=== PATIENT | male | born 1945 | race Caucasian/White ===

== ENCOUNTER 2017-03-27 21:01 | Inpatient (IN) | payer MEDICARE, OTHER ==
[~2017-03-27] VITALS: Ht 177.8 cm; Wt 122.2 kg
--- NOTE | ~2017-03-27 | CO ---
Unit #: [id number] #: [id number] Patient: RICK MONTGOMERY [id number] [address] [address] [id number] MR#: [id number] NAME: RICK MONTGOMERY ROOM: 341 Age: 72 Sex: M Admission Date: 03/27/2017 : 1945 Attending Physician: Sammie Ohara M.D. Primary Care Physician: Bandar Dorsey M.D. Consultation Date: 03/31/2017 CONSULTATION REPORT REASON FOR CONSULTATION Antibiotic recommendations. HISTORY The patient is a pleasant 72-year-old male with multiple medical problems, admitted with left-sided back and lower quadrant pain with some nausea, vomiting, fevers, and chills. No cough, congestion, chest pain, shortness of breath, headaches, or dizziness. He presented to Emergency Room, was febrile. CT scan of the abdomen and pelvis shows a 7-mm proximal left ureteral stone with moderate hydronephrosis and perinephric stranding. CT scan information is through chart as no report is available. He was admitted, started on multiple antibiotics, and underwent cystoscopy and stent placement. Urine cultures growing enterococcus, which is sensitive to ampicillin and vancomycin. The patient has been on Rocephin and vancomycin. Rocephin is stopped. He is allergic to penicillin with a rash. Infectious Disease consultation requested for further evaluation of antibiotic management. PAST MEDICAL HISTORY 1. Diabetes mellitus. 2. Atrial fibrillation, status post defibrillator placement. 3. Hypothyroidism. 4. Depression. 5. Obstructive sleep apnea, on CPAP. 6. Fatty liver. 7. DJD. PAST SURGICAL HISTORY 1. Cholecystectomy. 2. Right knee replacement. 3. Tonsillectomy. 4. Esophageal hernia, status post repair. 5. Removal of cyst from the hand. ALLERGIES Allergic to penicillin, causing rash. SOCIAL HISTORY Noncontributory. FAMILY HISTORY Noncontributory. Unit #: [id number] #: [id number] Patient: RICK MONTGOMERY CURRENT MEDICATIONS List reviewed. Antibiotics include Rocephin and vancomycin since admission, vancomycin was stopped this morning. PHYSICAL EXAMINATION GENERAL: Sitting up comfortably, in no distress. VITAL SIGNS: Temperature 99.1, pulse 62, respirations 16, and blood pressure 115/77. HEENT: Unremarkable. NECK: Supple. CHEST: Clear to auscultation. HEART: Normal S1 and S2. ABDOMEN: Soft and nontender. EXTREMITIES: Shows no edema. DIAGNOSTIC STUDIES LABORATORY RESULTS: Labs as noted above. BUN 16 and creatinine 1.1, which was 1.6 upon admission. AST 99, ALT 90, alkaline phosphatase 84, and total bilirubin 0.8. WBC 14.6, hemoglobin 12.8, and platelets 183. No urinalysis available. , enterococcus more than 100,000 colonies sensitive to ampicillin and vancomycin. Blood cultures have been negative. IMAGING STUDIES: CT scan report per notes. ASSESSMENT 1. Obstructive uropathy, status post cystoscopy and stent placement. 2. Left-sided pyelonephritis. 3. Sepsis with enterococcus. 4. Acute kidney injury, resolved. 5. Allergy to penicillin. PLAN We will go ahead and continue with vancomycin, total of three weeks. Get PICC line. Get pharmacy to follow for vancomycin dosing. CBC every Sunday and BMP every Sunday and . Stop date for vancomycin should be April 17. Further recommendation depending upon the course. I would like to thank Dr. Coronel for requesting us to participate in the care of this patient. We will follow this patient along with you. Dictated by... Jan Sandoval/isa TD: 04/01/2017 05:22 JOB #: [id number] Unit #: [id number] #: [id number] Patient: RICK MONTGOMERY CONSULTATION REPORT Page 1 of 1 X Carlos Ann MD CONSULTATION REPORT
--- NOTE | ~2017-03-27 | TOC ---
Unit #: [id number] #: [id number] Patient: RICK MONTGOMERY [id number] [address] [address] [id number] I MR#: [id number] NAME: RICK MONTGOMERY ROOM: CIC2 Age: 72 Sex: M Admission Date: 03/27/2017 : 1945 Attending Physician: Sammie Ohara M.D. Primary Care Physician: Bandar Dorsey M.D. TRANSFER OF CARE SUMMARY DISCHARGE DIAGNOSIS So far: 1. Septic shock. 2. Severe sepsis. 3. Sepsis. 4. Obstructive pyelonephritis. 5. Gross hematuria. 6. Acute kidney injury. 7. Atrial fibrillation with rapid ventricular rate. 8. Diabetes mellitus type 2. 9. Hypomagnesemia. 10. Hypokalemia. 11. Mild hyponatremia. 12. Hypocalcemia. 13. Kidney stone status post cystoscopy and stent placement. 14. History of nonischemic cardiomyopathy. 15. Status post defibrillator. 16. Obstructive sleep apnea on continuous positive airway pressure. 17. Depression. 18. Fatty liver. 19. Degenerative joint disease. CONSULTATION Dr. Ferreira. PROCEDURES The patient had a cystoscopy and left ureteral stent and Wild catheter placement. DIAGNOSTIC STUDIES LABORATORY: Glucose 93, sodium 133, potassium 4.1, creatinine 1.3, calcium 7.3. WBC 11.2, hemoglobin 11.9, platelets 148. Urine culture growing Enterococcus species. Blood cultures negative. IMAGING: Chest x-ray shows bilateral pleural plaques. HOSPITALIZATION COURSE A 72 year old admitted because of abdominal pain. Severe sepsis with septic shock. Severe sepsis present on admission. Patient currently stable. Obstructive pyelonephritis with kidney stone status post cystoscopy and stent placement. Urine cultures are growing Enterococcus. Wait for Unit #: [id number] #: [id number] Patient: RICK MONTGOMERY complete cultures. Continue with vancomycin and Rocephin for now. Gross hematuria from kidney stone. Treatment as per Urology. Acute kidney injury from sepsis and currently creatinine is stable. Multiple electrolyte imbalance, currently replaced. Monitor closely. Atrial fibrillation with rapid ventricular rate. Continue with Coreg, currently rate controlled on Pradaxa. Monitor his hematuria on Pradaxa. Diabetes mellitus type 2 uncontrolled. Continue with insulin. Okay to go to tele. [place] plans in one to two days once stable and urine cultures are back, complete (1) . Dictated by... Jan Franco/cristina TD: 03/30/2017 12:02 JOB #: [id number] TRANSFER OF CARE SUMMARY Page 1 of 1 X Sammie Ohara MD X TRANSFER OF CARE SUMMARY
--- NOTE | ~2017-03-27 | HP ---
Unit #: [id number] #: [id number] Patient: RICK MNOTGOMERY [id number] [address] [address] [id number] I MR#: [id number] NAME: RICK MONTGOMERY ROOM: CIC2 Age: 72 Sex: M Admission Date: 03/27/2017 : 1945 Attending Physician: Nancy Nova M.D. Primary Care Physician: Bandar Dorsey M.D. HISTORY AND PHYSICAL CHIEF COMPLAINT Obstructive pyelonephritis with 7 mm left ureteral stone. HISTORY This pleasant 72-year-old male with AODM, atrial fibrillation, cardiomyopathy, was transferred from [facility] emergency department for obstructive pyelonephritis. The patient was well until yesterday when he developed recurrent episodes of nausea and vomiting with left lower quadrant pain. His symptoms persisted today, and he developed fevers, sweats, chills. Went to [facility] emergency department where his initial systolic blood pressure was 108. He was febrile, and a CT scan performed showed a 7 mm proximal left ureteral stone with moderate hydronephrosis and moderate perinephric stranding. He was treated with vancomycin, IV fluids, and Levaquin. The case was discussed with urology and he was sent to this facility. He currently is making urine. His current blood pressure is 94/44. He is febrile to 102.4. PAST MEDICAL HISTORY 1. AODM. 2. Atrial fibrillation with cardiomyopathy, status post defibrillator. 3. Hypothyroidism. 4. Depression. 5. Obstructive sleep apnea, on CPAP. 6. Fatty liver. 7. DJD. 8. Cholecystectomy. 9. Right knee replacement. 10. Tonsillectomy. 11. Esophageal hernia repair. 12. Cyst removed from the hand. ALLERGIES Penicillin, resulting in a rash. HOME MEDICATIONS 1. Pradaxa 150 mg b.i.d. Last dose was this morning. 2. Effexor XR 75 mg daily. 3. Hytrin 5 mg b.i.d. 4. Synthroid 0.075 mg daily. 5. Coreg 25 mg, one and a half tablets daily. 6. Potassium 10 mEq daily. 7. Bumex 2 mg daily. Unit #: [id number] #: [id number] Patient: RICK MONTGOMERY 8. Vitamin C. 9. Co Q-10 daily. 10. Zinc daily. 11. Magnesium oxide 500 mg daily. 12. Spironolactone 25 mg, two tablets daily. 13. Metformin 500 mg. 14. Levemir 35 units subcu q. h.s. FAMILY HISTORY Negative for heart disease or kidney stones. SOCIAL HISTORY The patient lives with his . He stopped smoking many years ago, does not drink alcohol. REVIEW OF SYSTEMS Notable for nausea, vomiting, left lower quadrant pain, fever, sweats, chills, diabetes, above mentioned surgeries, atrial fibrillation, cardiomyopathy, hypothyroidism, depression, obstructive sleep apnea, fatty liver, DJD. All other systems were reviewed and otherwise negative. PHYSICAL EXAMINATION GENERAL APPEARANCE: Pleasant 72-year-old, moderately obese male, currently in no acute distress. VITAL SIGNS: Blood pressure 94/44, temperature is 102.4, heart rate 106. HEENT: Eyes PERRLA. Extraocular muscles are intact. Pharynx is benign. NECK: Supple without adenopathy or thyromegaly. CHEST: Clear. BACK: Without CVA tenderness. CARDIAC: Irregular S1 and S2 without definite murmur. ABDOMEN: Bowel sounds are present. The patient is tender in the left lower quadrant without rebound, guarding. No definite masses. Mild hepatomegaly noted on exam. EXTREMITIES: With mild edema. Pedal pulses are diminished. No ulcers on the feet. NEUROLOGIC: The patient is awake, alert. He is oriented. His cranial nerves are intact except that he is hard of hearing. He has equal strength throughout but is generally weak on exam. DIAGNOSTIC STUDIES LABORATORY: Admission labs - hematocrit is 42.4, white blood count is 20.6, normal platelet count. SMA-12 - sodium 129, creatinine 1.7, glucose 210, lactic acid 2.6, bilirubin is 2.4. Urinalysis - 10-20 red cells, 2-5 white cells, 1+ bacteria. IMAGING: Chest x-ray - stable cardiomegaly. CT scan shows 7 mm proximal left ureteral stone with moderate hydronephrosis and moderate perinephric stranding, fatty liver. There is a cyst in the left kidney which may need further workup. CARDIOVASCULAR: EKG shows atrial fibrillation, rate 96 with right bundle branch block. ASSESSMENT Unit #: [id number] #: [id number] Patient: RICK MONTGOMERY 1. Obstructive pyelonephritis with obstructing 7 mm left ureteral stone. 2. Acute kidney injury. 3. Nonischemic cardiomyopathy with atrial fibrillation, on Pradaxa. Last dose of Pradaxa was this morning. 4. Adult onset diabetes mellitus. 5. Hypothyroidism. 6. Obstructive sleep apnea. PLANS 1. Will add Rocephin to Levaquin and vancomycin given that penicillin only results in a rash. 2. IV fluids. 3. Hold diuretics. 4. Will discuss with urology tonight. 5. SCDs for DVT prophylaxis. 6. Keep NPO. 7. Sliding scale insulin and decrease Levemir. Dictated by Nancy Nova M.D. AML/df TD: 03/28/2017 05:03 JOB #: [id number] CC: Sara Negron M.D. HISTORY AND PHYSICAL Page 1 of 1 X Nancy Nova MD HISTORY AND PHYSICAL
--- NOTE | ~2017-03-27 | CR72 ---
[facility] A Service of [facility] & [facility] RADIOLOGY TEXT RESULTS PATIENT: RICK MONTGOMERY LOCATION: [address] : [birth year] UNIT #: [id number] AGE: [address]: Sammie Ohara MD SEX: M ORDER DR: [id number] [facility] [address] [facility]. [place], [place] [address] [id number] I MR#: [id number] Acc #: [id number] NAME: RICK MONTGOMERY : 1945 SEX: M STUDY DATE/TIME: 03/28/2017 17:21 UNIT: [facility] ROOM: [facility] STUDY DESCRIPTION: CR Chest Single View Portable Attending Physician: Sammie Ohara M.D. Ordering Physician: Ed Scott Barbosa M.D. Primary Care Physician: Bandar Dorsey M.D. MEDICAL IMAGING REPORT This report is preliminary unless electronic signature is present EXAM Portable chest HISTORY Central line placement today. FINDINGS Right IJ central line tip is at the junction of the SVC and right atrium. No pneumothorax. Mild cardiac enlargement. Multifocal calcified bilateral pleural plaques. Pulmonary vascularity is normal. Dictated by... Jadon Montes M.D. THIS IS AN ELECTRONICALLY VERIFIED REPORT Jadon Montes M.D. at 03/29/2017 11:02 PM DFL/psc TD: 03/29/2017 03:39 JOB #: [id number] MEDICAL IMAGING REPORT Page 1 of 1 COPY
--- NOTE | ~2017-03-27 | XA166 ---
[facility] A Service of [facility] & [facility] RADIOLOGY TEXT RESULTS PATIENT: RICK MONTGOMERY LOCATION: C3A PC 341- : 43 UNIT #: [id number] AGE: [address]: Alan Saeed MD SEX: M ORDER DR: [id number] [id number] [facility]. [place], [place] [address] [id number] MR#: [id number] Acc #: [id number] NAME: RICK MONTGOMERY : 1945 SEX: M STUDY DATE/TIME: 04/02/2017 11:52 UNIT: C3A PCU ROOM: 341 STUDY DESCRIPTION: XA PICC Line Placement WO Port Attending Physician: Alan Saeed M.D. Ordering Physician: Sammie Ohara M.D. Primary Care Physician: Bandar Doresy M.D. MEDICAL IMAGING REPORT This report is preliminary unless electronic signature is present PICC LINE INDICATION IV antibiotics. PRE-PROCEDURE The procedure was explained to the patient and/or patient senior outside sales representative including risks, benefits, potential complications and potential for alternative forms of treatment. Informed consent was obtained, and prior to initiating the procedure a formal timeout procedure was performed. Fluoro time 0.3 minutes. Reference air kerma 11 mGy PROCEDURE Using full standard sterile barrier technique, including caps, gowns, gloves, masks, as well as sterile skin preparation and standard sterile draping, the right arm was prepped and draped in the usual fashion, and real-time sterile ultrasound guidance was used to localize an arm vein and to confirm vessel patency. A hard copy ultrasound image was recorded. After local anesthesia with 1% Xylocaine, the vein was punctured using real-time sterile ultrasound guidance, and an 0.018 guidewire was advanced into the superior vena cava, using fluoroscopic guidance. A 4 Czech single-lumen 43.0 cm PICC was then measured and deployed with the tip positioned in the superior vena cava. The position of the line was documented with a radiographic image. The line was secured in place with an adhesive dressing and an antibiotic patch was applied. Total fluoro time was 0.3 minutes. Reference air kerma 11 mGy. IMPRESSION Successful right arm PICC line placement. [facility] A Service of [facility] & [facility] RADIOLOGY TEXT RESULTS PATIENT: RICK MONTGOMERY LOCATION: [facility] 341-01 : 43 UNIT #: [id number] AGE: [address]: Alan Saeed MD SEX: M ORDER DR: Dictated by... Vick Pagan M.D. THIS IS AN ELECTRONICALLY VERIFIED REPORT Vick Pagan M.D. at 04/04/2017 7:14 AM Kyra TD: 04/03/2017 09:07 JOB #: [id number] MEDICAL IMAGING REPORT Page 1 of 1 COPY
--- NOTE | ~2017-03-27 | CO ---
Unit #: [id number] #: [id number] Patient: RICK MONTGOMERY [id number] [address] [place], [place] [address] [id number] I MR#: [id number] NAME: RICK MONTGOMERY ROOM: 341 Age: 72 Sex: M Admission Date: 03/27/2017 : 1945 Attending Physician: Sammie Ohara M.D. Primary Care Physician: Bandar Dorsey M.D. CONSULTATION REPORT The patient is followed by Dr. Alexia Beck. REASON FOR CONSULTATION Ventricular tachycardia runs. HISTORY OF PRESENT ILLNESS This is a pleasant 72-year-old, male with a past medical history of hypertension, diabetes mellitus, nonischemic cardiomyopathy, status post Medtronic AICD [place] [address] [facility], chronic atrial fibrillation, on chronic anticoagulation with Pradaxa, hypothyroidism, and obstructive sleep apnea. Initially, the patient was admitted on 03/27 secondary to abdominal pain, nausea, and vomiting. He initially presented to [facility]. CT scan of the abdomen was performed, which showed a 7-mm obstructing stone in the proximal left ureter, causing left hydronephrosis and moderate left perinephric stranding. The patient was transferred to [facility] for further evaluation. Dr. Blanchard of Urology saw the patient, and performed a cystoscopy with placement of left ureteral stent on 03/28. The patient was transferred to ICU postoperatively. He also had issues with hypotension and required pressure support during his stay as well as some acute kidney injury. We were asked to see the patient secondary to runs of ventricular tachycardia. The patient denies any complaints of chest pain, shortness of breath, or palpitations. Again, he is status post AICD placement, Medtronic device on 10/04/[address] Alegre. The patient also had cardiac catheterization in 06/2015, which showed an LVEF of 30%, nonobstructive coronary artery disease, mid LAD had 20% to 25% stenosis. RCA was felt to be normal. At this time, the patient is stable. He denies any shocks from his defibrillator. He denies any chest pain. We were asked to see for evaluation of the above. PAST MEDICAL HISTORY 1. Hypertension. 2. Nonobstructive coronary artery disease, status post cardiac cath in 06/2015 with an LVEF of 30%, nonobstructive coronary artery disease, mid LAD is 20% to 25%. RCA was normal. Left main was normal. LAD at 20% to 25% stenosis. Left circumflex, normal, and right coronary artery branches were free of any angiographically significant coronary atherosclerosis. 3. 2D echocardiogram in 11/24 shows LVEF of 35%. RV pacer lead present. Severe left atrial dilation, aortic valve trileaflet with some mild calcification and mild MR and TR. 4. Diabetes mellitus. 5. Nonischemic cardiomyopathy. Unit #: [id number] #: [id number] Patient: RICK MONTGOMERY 6. AICD placement. Medtronic device per Dr. Alegre in 09/2015. 7. Chronic atrial fibrillation, on chronic anticoagulation with Pradaxa. 8. Hypothyroidism. 9. Obstructive sleep apnea. 10. Fatty liver. 11. Degenerative joint disease. 12. Depression. PAST SURGICAL HISTORY 1. Cardiac cath, Medtronic AICD, placed 10/04/2015. 2. Cholecystectomy. 3. Right knee replacement. 4. Tonsillectomy. 5. Esophageal hernia repair. 6. Cyst removed from hand. ALLERGIES Penicillin. HOME MEDICATIONS 1. Pradaxa 150 mg p.o. b.i.d. 2. Effexor XR 75 mg p.o. daily. 3. Hytrin 5 mg p.o. daily. 4. Synthroid 75 mcg p.o. daily. 5. Carvedilol 25 mg p.o. b.i.d. 6. CoQ10 120 mg p.o. daily. 7. Magnesium 500 mg p.o. daily. 8. Spironolactone 25 mg p.o. b.i.d. 9. The reports he has been taking this; however, is currently not on the medication reconciliation. 10. Synthroid 75 mg daily. 11. Potassium 10 mEq daily. 12. Bumex 2 mg one p.o. daily. 13. Vitamin C 1 tablet daily. 14. Metformin 500 mg daily. 15. Levemir 35 units subcutaneous nightly. FAMILY HISTORY Negative for coronary artery disease. SOCIAL HISTORY The patient lives with his . He is reformed smoker. Denies illicit drugs or alcohol use. REVIEW OF SYSTEMS A 10-point review of systems is obtained and reviewed as negative except for what was stated above in the HPI. PHYSICAL EXAMINATION GENERAL APPEARANCE: This is a pleasant 72-year-old, male, currently resting in bed with his CPAP on, no acute distress. VITAL SIGNS: Temperature 99.1, pulse 62 to 110, blood pressure 102/52 to 115/77. HEENT: Head is atraumatic and normocephalic. Pupils are equal and round. NECK: Trachea is midline. No JVD. No lymphadenopathy or thyromegaly. Carotid upstrokes are normal. CHEST: Clear to auscultation. CARDIOVASCULAR: S1 and S2. Irregularly irregular. No murmurs, gallops, Unit #: [id number] #: [id number] Patient: MONTGOMERY,RICK or rubs. ABDOMEN: No sounds are present. Obese. Pannus. Nontender and nondistended. EXTREMITIES: 1+ edema. Pulses are weak. No clubbing or cyanosis. NEUROLOGIC: The patient is awake, alert, and oriented. He moves all extremities equally, follows commands with ease. DIAGNOSTIC STUDIES Laboratory studies: Potassium is 4.2, sodium is 136, BUN 16, creatinine 1.1, and magnesium 1.8. AST 99, ALT 90. Hemoglobin 12.4, hematocrit 37.8, WBC is 14.6, and platelet count 183. Urine culture shows positive for Enterococcus. Blood cultures have been negative. IMAGING STUDIES: Chest x-ray from 03/28 shows right IJ central line at the junction of the SVC in the right atrium. No pneumo. Mild cardiac enlargement. Multifocal calcified bilateral pleural plaques. Pulmonary vascularity is normal. CARDIOVASCULAR STUDIES: EKG is currently pending. On telemetry, the patient has atrial fibrillation with frequent PVCs. IMPRESSION 1. Nonsustained ventricular tachycardia in an asymptomatic patient with a history of AICD. 2. Nonischemic cardiomyopathy. EF on last echo of 11/2016 shows ejection fraction of 35%. 3. Nonobstructive coronary artery disease. Cardiac cath 06/2015 showed a mid LAD 20% to 25%. Otherwise, no significant obstruction. 4. Chronic atrial fibrillation, on chronic anticoagulation therapy with Pradaxa. 5. Obstructive left pyelonephritis and sepsis. Sepsis is resolved, status post left ureteral stent. 6. Hypertension. 7. Diabetes mellitus. 8. Obstructive sleep apnea, compliant with CPAP therapy. PLAN We have been asked to see the patient secondary to nonsustained ventricular tachycardia. The patient is asymptomatic. He currently has a Medtronic AICD in place, that was placed in 09/[address] Alegre. There have been no discharges on this device. The patient has nonobstructive coronary artery disease, determined by cardiac cath in 06/2015. He denies any complaints of chest pain. He appears euvolemic on examination. His potassium and magnesium have been reviewed. His potassium is noted to be 4.2, magnesium is 1.8. We will supplement magnesium and give 2 g IV x1. We will check EKG today. Repeat a Mag level in the a.m. as well as BMP. We will plan to increase the patient's beta-rekha dose as tolerated and we will consider LINDA inhibitor if blood pressure and kidney function remained stable. This patient will follow up with Dr. Alexia Beck, who is his primary brake assembler at discharge. No further cardiac workup is indicated at this time. Dictated by... Shilpa McginnisPDinoraRTara Unit #: [id number] #: [id number] Patient: RICK MONTGOMERY LMW/modl TD: 04/01/2017 05:18 JOB #: [id number] CONSULTATION REPORT Page 1 of 1 X Linh Altamirano APRN X CONSULTATION REPORT
--- NOTE | ~2017-03-27 | OR ---
Unit #: [id number] #: [id number] Patient: RICK MONTGOMERY [id number] [facility] [address] [facility]. [place], [place] [address] [id number] I MR#: [id number] NAME: RICK MONTGOMERY ROOM: [facility] Date of Procedure: 03/28/2017 Admission Date: 03/27/2017 Surgeon: Romie Ferreira M.D. : 1945 Attending Physician: Sammie Ohara M.D. Primary Care Physician: Bandar Dorsey M.D. OPERATIVE REPORT PREOPERATIVE DIAGNOSES Obstructive left pyelonephritis and sepsis. POSTOPERATIVE DIAGNOSES Obstructive left pyelonephritis and sepsis. PROCEDURES PERFORMED Cystoscopy with placement of left ureteral stent and Wild catheter. ANESTHESIA General. INDICATIONS FOR PROCEDURE This 72-year-old man who sees my partner, Dr. Prabhu Ferrera, for BPH and history of urinary tract infections and he saw him recently presented to [facility] accompanied by his with a 2-day complaint of malaise and brief left flank pain which recurred again today in earnest. He was noted in the emergency department this evening to have a temperature of 101.4 degrees and WBC of 20. He was transferred to [facility] on arrival shortly before midnight, his fever was 102 and he was demonstrating marginal cardiovascular status. A third antibiotic was ordered by Medicine as he was expedited for stent placement. DESCRIPTION OF PROCEDURE The patient underwent satisfactory induction of anesthesia, and was positioned in dorsal lithotomy. The genitalia were prepped and draped. The urethra was dilated to a 24-Citizen Of [place] with a Camacho sound to allow placement of the 22-Citizen [place] rigid cystoscope. Otherwise, the urethra was normal until noting prostatic hypertrophy and elevated bladder neck. The bladder was moderate to severely trabeculated containing scattered stoney granules. There were no tumors seen. The orifices were abundantly large bilaterally. The left ureteral orifice was entered with a Pollack catheter which passed easily up to where the stone was seen and easily passed by but not able to be manipulated up into the kidney. 10 mL of dark maroon renal pelvic urine were aspirated for culture. A guidewire was placed. Then, a 28 x 6 double-J stent in excellent position was deployed internally and the bladder drained with an 18 Wild catheter to complete the procedure. He was stable throughout the procedure and will be transferred to the ICU. Dictated by... Unit #: [id number] #: [id number] Patient: RICK MONTGOMERY M.D. RBH/isa TD: 03/28/2017 06:39 JOB #: [id number] OPERATIVE REPORT Page 1 of 1 X Romie Ferreira MD X PROCEDURE OPERATIVE NOTE
--- NOTE | ~2017-03-27 | DS ---
Unit #: [id number] #: [id number] Patient: RICK MONTGOMERY [id number] [address] [address] [id number] I MR#: [id number] NAME: RICK MONTGOMERY ROOM: 341 Age: 72 Sex: M Admission Date: 03/27/2017 : 1945 Discharge Date: Attending Physician: Alan Saeed M.D. Primary Care Physician: Bandar Dorsey M.D. DISCHARGE SUMMARY ADDENDUM Please see previously dictated transfer of care summary by Dr. Sammie Ohara dictated on March 30, 2017 for full list of diagnoses and initial hospital course. ADDITIONAL HOSPITAL COURSE The patient's urine cultures came back with Enterococcus, which was sensitive to ampicillin and vancomycin. The patient has an allergy to penicillin whereas it causes rash, so infectious disease with Dr. Carlos Ann recommended 3 weeks of IV vancomycin. The stop date will be April 17. Blood cultures were still negative at the time of discharge. Cardiac medications were adjusted by Dr. Marycarmen Gallegos with cardiology. DISCHARGE DISPOSITION Subacute rehab. DISCHARGE STATUS Stable. DISCHARGE DIET A 2,000 mg sodium, diabetic diet. DISCHARGE ACTIVITY With assistance only. FOLLOWUP 1. Discharge followup is with his primary care physician, Dr. Alegre, in 4-6 weeks. 2. Follow up with Dr. Alexia Beck with cardiology in 4-6 weeks. 3. Follow up with Dr. Ferreira with urology in 1 week for stent removal. DISCHARGE MEDICATIONS 1. Combivent 3 mL inhaled q.4 hours p.r.n. shortness of breath. 2. Tylenol 650 mg p.o. q.6 hours p.r.n. pain. 3. Magnesium oxide 400 mg p.o. b.i.d. 4. Pradaxa 150 mg p.o. b.i.d. 5. Metformin 1,000 mg p.o. b.i.d. 6. Carvedilol 12.5 mg p.o. b.i.d. 7. Bumex 2 mg p.o. once daily. 8. Lisinopril 2.5 mg p.o. daily. 9. Hytrin 5 mg p.o. daily. 10. NovoLog medium dose sliding scale subcu a.c. and q.h.s. 11. Coenzyme Q10 - 120 mg p.o. daily. 12. Aldactone 12.5 mg p.o. b.i.d. Unit #: [id number] #: [id number] Patient: RICK MONTGOMERY 13. Calcium carbonate 500 mg p.o. t.i.d. 14. Potassium chloride 10 mEq p.o. daily. 15. Synthroid 75 mcg p.o. daily. 16. Vitamin C 100 mg p.o. daily. 17. Zinc 50 mg p.o. daily. 18. Vancomycin 2 grams IV daily. Last dose to be on April 17, 2017. Laboratory recommend checking a vancomycin trough twice weekly while on vancomycin. 1. Dictated by... Alan Saeed M.D. DEXTER/trudi TD: 04/02/2017 15:19 JOB #: [id number] DISCHARGE SUMMARY Page 1 of 1 X Alan Saeed MD X DISCHARGE SUMMARY
--- NOTE | ~2017-03-27 | EKG ---
PATIENT: RICK MONTGOMERY UNIT #: [id number] Ventricular Rate: 98 BPM Atrial Rate: 105 BPM QRS Duration: 124 ms Q-T Interval: 366 ms QTC Calculation(Bezet): 467 ms Calculated R [place]: -70 degrees Calculated T [place]: -38 degrees Diagnosis Line: Atrial fibrillation with premature ventricular or Diagnosis Line: aberrantly conducted complexes Diagnosis Line: Right bundle branch block Diagnosis Line: Left anterior fascicular block Diagnosis Line: Bifascicular block Diagnosis Line: Low voltage QRS Diagnosis Line: Abnormal ECG Diagnosis Line: No previous ECGs available Diagnosis Line: Confirmed by JACOB SHAH MD ([id number]) on Diagnosis Line: 04/02/2017 8:13:02 PM INTERPRETING : ALETA
[~2017-03-27 21:01] MED LIST: COUMADIN PO; DEMADEX PO; EFFEXOR XR75 MG PO; MAGNESIUM500 MG PO; [UNRECOGNIZED DRUG - OTHER]; [UNRECOGNIZED DRUG - OTHER]
[2017-03-28 06:18] LABS: BASOPHIL% 0.2 % (0-2.5); EOSINOPHIL% 0.1 % (0.0-7.0); HEMATOCRIT 38.3 % (38.0-50.0); HEMOGLOBIN 12.7 gm/dL (13.0-16.0); LYMPHOCYTE# 1.1 X10e3 (1.0-3.5); LYMPHOCYTE% 6.1 % (17.0-45.0); MEAN CELL VOLUME 88.2 FL (83-96); MEAN CORPUSCULAR HEMOGLOBIN 29.2 PG (28-34); MEAN CORPUSCULAR HGB CONC 33.1 g/dL (30-36); MEAN PLATELET VOLUME 8.7 FL (6.5-11.5); MONOCYTE# 1.2 X10e3 (0-1.0); MONOCYTE% 6.7 % (3.0-12.0); NEUTROPHIL# 15.6 X10e3 (1.5-7.1); NEUTROPHIL% 86.9 % (40-75); PLATELET COUNT 146 X10e3 (140-420); RED BLOOD COUNT 4.34 X10e (3.90-5.60); RED CELL DISTRIBUTION WIDTH 13.8 % (11.0-15.5); WHITE BLOOD COUNT 17.9 X10e3 (4.0-10.5)
[2017-03-28 06:29] LABS: DIFF IND YES
[2017-03-28 06:30] LABS: BUN/CREATININE RATIO 12.5; CALCIUM SERUM 7.6 mg/dL (8.4-10.2); CREATININE SERUM 1.6 mg/dL (0.6-1.4); GLOM FILT RATE Estimated 41.8 mL/min (>60); POTASSIUM 3.4 mmol/L (3.5-5.1)
[2017-03-28 08:22] LABS: PLATELET ESTIMATE NORMAL (NORMAL)
[2017-03-28 08:23] LABS: TOXIC GRANULATION SL
[2017-03-29 05:24] LABS: BASOPHIL% 0.1 % (0-2.5); EOSINOPHIL# 0.1 X10e3 (0-0.7); EOSINOPHIL% 0.4 % (0.0-7.0); HEMATOCRIT 37.8 % (38.0-50.0); HEMOGLOBIN 12.3 gm/dL (13.0-16.0); LYMPHOCYTE# 1.2 X10e3 (1.0-3.5); LYMPHOCYTE% 8.1 % (17.0-45.0); MEAN CELL VOLUME 89.3 FL (83-96); MEAN CORPUSCULAR HGB CONC 32.5 g/dL (30-36); MEAN PLATELET VOLUME 9.1 FL (6.5-11.5); MONOCYTE% 6.5 % (3.0-12.0); NEUTROPHIL# 12.7 X10e3 (1.5-7.1); NEUTROPHIL% 84.9 % (40-75); PLATELET COUNT 141 X10e3 (140-420); RED BLOOD COUNT 4.23 X10e (3.90-5.60); RED CELL DISTRIBUTION WIDTH 14.1 % (11.0-15.5)
[2017-03-29 05:38] LABS: DIFF IND NO
[2017-03-29 05:46] LABS: ALBUMIN SERUM 2.7 g/dL (3.5-5.0); BILIRUBIN,TOTAL 1.4 mg/dL (0.2-2.0); BUN/CREATININE RATIO 11.42; CALCIUM SERUM 7.1 mg/dL (8.4-10.2); CREATININE SERUM 1.4 mg/dL (0.6-1.4); GLOM FILT RATE Estimated 49.2 mL/min (>60); MAGNESIUM 1.2 mg/dL (1.6-3.0); POTASSIUM 3.6 mmol/L (3.5-5.1); PROTEIN TOTAL SERUM 6.2 g/dL (6.0-8.3)
[2017-03-30 05:43] LABS: BASOPHIL% 0.2 % (0-2.5); EOSINOPHIL# 0.2 X10e3 (0-0.7); HEMATOCRIT 36.6 % (38.0-50.0); HEMOGLOBIN 11.9 gm/dL (13.0-16.0); LYMPHOCYTE# 1.2 X10e3 (1.0-3.5); LYMPHOCYTE% 10.5 % (17.0-45.0); MEAN CELL VOLUME 88.7 FL (83-96); MEAN CORPUSCULAR HEMOGLOBIN 28.7 PG (28-34); MEAN CORPUSCULAR HGB CONC 32.4 g/dL (30-36); MONOCYTE# 0.8 X10e3 (0-1.0); MONOCYTE% 7.5 % (3.0-12.0); NEUTROPHIL# 8.9 X10e3 (1.5-7.1); NEUTROPHIL% 79.8 % (40-75); PLATELET COUNT 148 X10e3 (140-420); RED BLOOD COUNT 4.13 X10e (3.90-5.60); RED CELL DISTRIBUTION WIDTH 13.9 % (11.0-15.5); WHITE BLOOD COUNT 11.2 X10e3 (4.0-10.5)
[2017-03-30 05:45] LABS: DIFF IND NO
[2017-03-30 06:17] LABS: BUN/CREATININE RATIO 12.3; CALCIUM SERUM 7.3 mg/dL (8.4-10.2); CREATININE SERUM 1.3 mg/dL (0.6-1.4); GLOM FILT RATE Estimated 53.8 mL/min (>60); POTASSIUM 4.1 mmol/L (3.5-5.1)
[2017-03-31 09:00] LABS: BASOPHIL% 0.3 % (0-2.5); EOSINOPHIL# 0.3 X10e3 (0-0.7); EOSINOPHIL% 1.7 % (0.0-7.0); HEMATOCRIT 37.8 % (38.0-50.0); HEMOGLOBIN 12.4 gm/dL (13.0-16.0); LYMPHOCYTE# 1.7 X10e3 (1.0-3.5); LYMPHOCYTE% 11.6 % (17.0-45.0); MEAN CORPUSCULAR HEMOGLOBIN 29.2 PG (28-34); MEAN CORPUSCULAR HGB CONC 32.8 g/dL (30-36); MEAN PLATELET VOLUME 8.7 FL (6.5-11.5); MONOCYTE# 1.3 X10e3 (0-1.0); MONOCYTE% 8.7 % (3.0-12.0); NEUTROPHIL# 11.3 X10e3 (1.5-7.1); NEUTROPHIL% 77.7 % (40-75); PLATELET COUNT 183 X10e3 (140-420); RED BLOOD COUNT 4.25 X10e (3.90-5.60); RED CELL DISTRIBUTION WIDTH 14.3 % (11.0-15.5); WHITE BLOOD COUNT 14.6 X10e3 (4.0-10.5)
[2017-03-31 09:06] LABS: DIFF IND NO
[2017-03-31 09:32] LABS: ALBUMIN SERUM 2.3 g/dL (3.5-5.0); BILIRUBIN,TOTAL 0.8 mg/dL (0.2-2.0); BUN/CREATININE RATIO 14.54; CALCIUM SERUM 8.2 mg/dL (8.4-10.2); CREATININE SERUM 1.1 mg/dL (0.6-1.4); GLOM FILT RATE Estimated 65.8 mL/min (>60); MAGNESIUM 1.8 mg/dL (1.6-3.0); POTASSIUM 4.2 mmol/L (3.5-5.1); PROTEIN TOTAL SERUM 5.6 g/dL (6.0-8.3)
[2017-04-01 06:27] LABS: HEMATOCRIT 33.6 % (38.0-50.0); HEMOGLOBIN 11.1 gm/dL (13.0-16.0); MEAN PLATELET VOLUME 8.4 FL (6.5-11.5); RED BLOOD COUNT 3.82 X10e (3.90-5.60); RED CELL DISTRIBUTION WIDTH 13.9 % (11.0-15.5); WHITE BLOOD COUNT 13.1 X10e3 (4.0-10.5)
[2017-04-01 06:55] LABS: BUN/CREATININE RATIO 14.16; CALCIUM SERUM 8.5 mg/dL (8.4-10.2); CREATININE SERUM 1.2 mg/dL (0.6-1.4); GLOM FILT RATE Estimated 59.2 mL/min (>60); MAGNESIUM 1.9 mg/dL (1.6-3.0); POTASSIUM 3.9 mmol/L (3.5-5.1)
[2017-04-02 06:47] LABS: BASOPHIL% 0.3 % (0-2.5); DIFF IND NO; EOSINOPHIL# 0.2 X10e3 (0-0.7); EOSINOPHIL% 1.5 % (0.0-7.0); HEMOGLOBIN 10.6 gm/dL (13.0-16.0); LYMPHOCYTE# 1.9 X10e3 (1.0-3.5); LYMPHOCYTE% 13.1 % (17.0-45.0); MEAN CELL VOLUME 87.6 FL (83-96); MEAN CORPUSCULAR HEMOGLOBIN 29.1 PG (28-34); MEAN CORPUSCULAR HGB CONC 33.2 g/dL (30-36); MEAN PLATELET VOLUME 8.2 FL (6.5-11.5); MONOCYTE# 1.2 X10e3 (0-1.0); MONOCYTE% 8.4 % (3.0-12.0); NEUTROPHIL# 10.8 X10e3 (1.5-7.1); NEUTROPHIL% 76.7 % (40-75); PLATELET COUNT 217 X10e3 (140-420); RED BLOOD COUNT 3.65 X10e (3.90-5.60); RED CELL DISTRIBUTION WIDTH 14.3 % (11.0-15.5); WHITE BLOOD COUNT 14.1 X10e3 (4.0-10.5)
[2017-04-02 07:12] LABS: BILIRUBIN, DIRECT 0.3 mg/dL (0.0-0.2); BILIRUBIN,INDIRECT 0.5 mg/dL (0.0-0.9); BILIRUBIN,TOTAL 0.8 mg/dL (0.2-2.0); BUN/CREATININE RATIO 13.84; CALCIUM SERUM 8.4 mg/dL (8.4-10.2); CREATININE SERUM 1.3 mg/dL (0.6-1.4); GLOM FILT RATE Estimated 53.8 mL/min (>60); POTASSIUM 3.8 mmol/L (3.5-5.1)
[2017-04-09] MEDS ORDERED: MAGNESIUM400 M1 PO (14:36)
[2017-04-09] MEDS ORDERED: PRADAXA150 MG PO (14:38)
[2017-04-09] MEDS ORDERED: VITAMIN C250 M1 PO (14:38)
[2017-04-09] MEDS ORDERED: ACETAMINOPHEN650 M4 PO (14:38)
[2017-04-09] MEDS ORDERED: ZESTRIL2.5 M1 PO (14:39)
[2017-04-09] MEDS ORDERED: TUMS200 MG PO (14:39)
[2017-04-09] MEDS ORDERED: VANCOCIN HCL2 GM IV (14:40)
[2017-04-09] MEDS ORDERED: IPRAT-ALBUT 0.5-3 ML INH (14:41)
[2017-04-09] MEDS ORDERED: NOVOLOG FL100 UNIT/1 SUBQ (14:41)
[2017-04-09] MEDS ORDERED: HYTRIN PO (15:34)
[2017-04-09] MEDS ORDERED: SYNTHROID75 MCG PO (15:34)
[2017-04-09] MEDS ORDERED: COQ-10100 MG PO (15:35)
[2017-04-09] MEDS ORDERED: [UNRECOGNIZED DRUG - OTHER] PO (15:35)
[2017-04-09] MEDS ORDERED: KCL PO (17:57)
[2017-04-09] MEDS ORDERED: BUMEX PO (17:59)
[2017-04-09] MEDS ORDERED: VITAMIN C100 M1 PO (18:00)
[2017-04-09] MEDS ORDERED: ZINC50 M1 PO (18:02)
[2017-04-09] MEDS ORDERED: ALDACTONE PO (18:03)
[2017-04-09] MEDS ORDERED: METFORMIN HCL1000 M1 PO (18:04)
== END 2017-04-02 18:36 | DRG 871 ==
LOC: CEDOF 22:42 → UNDOADMIN 22:42 → C5B 22:44 → CEDOF 22:44 → CICCU2 23:30 → CEDOF 23:30 → C5B 23:30 → CICCU2 23:55 → C5B 23:55 → CICCU2 03-28 07:03 → C3A PCU 03-30 23:39
PROVIDERS: Internal Medicine; Internal Medicine Cardiovascular Disease; Urology
PROC: 0T9B80Z Drainage of Bladder with Drainage Device, Via Natural or Artificial Opening Endoscopic (ICD-10-PCS; 2017-03-28)
PROC: 05HM33Z Insertion of Infusion Device into Right Internal Jugular Vein, Percutaneous Approach (ICD-10-PCS; 2017-03-28)
PROC: B543ZZA Ultrasonography of Right Jugular Veins, Guidance (ICD-10-PCS; 2017-03-28)
PROC: 0T778DZ Dilation of Left Ureter with Intraluminal Device, Via Natural or Artificial Opening Endoscopic (ICD-10-PCS; principal; 2017-03-28 00:30)
DX: A41.81 Sepsis due to Enterococcus (principal); R65.21 Severe sepsis with septic shock; N17.9 Acute kidney failure, unspecified; I47.2 Ventricular tachycardia; I42.9 Cardiomyopathy, unspecified; E87.1 Hypo-osmolality and hyponatremia; E83.42 Hypomagnesemia; N13.6 Pyonephrosis; E11.9 Type 2 diabetes mellitus without complications; E03.9 Hypothyroidism, unspecified; F32.9 Major depressive disorder, single episode, unspecified; G47.33 Obstructive sleep apnea (adult) (pediatric); K76.0 Fatty (change of) liver, not elsewhere classified; M19.90 Unspecified osteoarthritis, unspecified site; Z90.49 Acquired absence of other specified parts of digestive tract; Z96.651 Presence of right artificial knee joint; Z88.0 Allergy status to penicillin; Z79.4 Long term (current) use of insulin; N28.1 Cyst of kidney, acquired; E87.6 Hypokalemia; E83.51 Hypocalcemia; R31.0 Gross hematuria; I25.10 Atherosclerotic heart disease of native coronary artery without angina pectoris; Z95.810 Presence of automatic (implantable) cardiac defibrillator; I48.2 Chronic atrial fibrillation; B95.2 Enterococcus as the cause of diseases classified elsewhere
CPT/HCPCS: 71010; 76937; 77001; 80048; 80053; 80061; 80076; 80202; 82947; 83605; 83735; 85025; 85027; 87040; 87086; 87088; 87186; 93005; 94640; 94760; 97110; 97116; 97163; 97166; 97530; 97535; C1751; C2617; G8978-GP; G8979-GP; G8987-GO; G8988-GO; J0696; J1815; J2405; J3010; J3370; J3475

== ENCOUNTER → 2017-04-09 | Day surgery (SDC) | payer MEDICARE, OTHER ==
[~2017-04-09] MED LIST changes: +ACETAMINOPHEN650 M4 PO; +ALDACTONE PO; +BUMEX PO; +COQ-10100 MG PO; +HYTRIN PO; +IPRAT-ALBUT 0.5-3 ML INH; +KCL PO; +MAGNESIUM400 M1 PO; +METFORMIN HCL1000 M1 PO; +NOVOLOG FL100 UNIT/1 SUBQ; +PRADAXA150 MG PO; +SYNTHROID75 MCG PO; +TUMS200 MG PO; +VANCOCIN HCL2 GM IV; +VITAMIN C100 M1 PO; +VITAMIN C250 M1 PO; +ZESTRIL2.5 M1 PO; +ZINC50 M1 PO; +[UNRECOGNIZED DRUG - OTHER] PO
== END | disposition home or self-care (01) ==
LOC: CSUR 13:49
DX: N20.1 Calculus of ureter (principal); E11.9 Type 2 diabetes mellitus without complications; Z53.8 Procedure and treatment not carried out for other reasons
CPT/HCPCS: 82947; J3010

== ENCOUNTER → 2017-04-10 | Day surgery (SDC) | payer MEDICARE, OTHER ==
--- NOTE | ~2017-04-10 | OR ---
Unit #: [id number] #: [id number] Patient: RICK MONTGOMERY [id number] [address] [place], [place] [address] [id number] MR#: [id number] NAME: RICK MONTGOMERY. ROOM: Date of Procedure: 04/10/2017 Admission Date: 04/10/2017 Surgeon: Romie Ferreira M.D. : 1945 Attending Physician: Romie Ferreira M.D. Primary Care Physician: Sara Negron M.D. OPERATIVE REPORT PREOPERATIVE DIAGNOSES Left renal stone and ureteral stent. POSTOPERATIVE DIAGNOSES Left renal stone and ureteral stent. PROCEDURE PERFORMED Left rigid and flexible ureteroscopy, holmium laser lithotripsy, basket extraction, stent removal. ANESTHESIA General. INDICATIONS FOR PROCEDURE This is a 72-year-old man who presented with enterococcal urinary tract infection and sepsis associated with an obstructing 7 mm upper left ureteral stone and had emergency stent placement in the early hours and has recovered after a stay in the intensive care unit. He returned yesterday for second stage procedure which was deferred to today in order to have a reliable laser as yesterday the laser was working abnormally. DESCRIPTION OF PROCEDURE The patient is on vancomycin still for the enterococcus through 04/17/2017. He was given additional Levaquin 250 mg and satisfactory general anesthesia. In the dorsal lithotomy position, routine prep and drape were performed. The urethra was gently dilated to 24-[place]ht[place] to allow straight for placement of the 22-[place]ht[place] rigid cystoscope noting no abnormalities of the anterior urethra and mild elevation of bladder neck from BPH. The bladder was drained of dark urine and the stent curl was not calcified. It was grasped and extracted then amputated to allow passage of a Sensor guidewire up through the stent as seen fluoroscopically. The stone having been located in the proximal ureter. I passed a dual-lumen catheter, and a second guidewire, then over one of the guidewires advanced the rigid ureteroscope up to close to the stone and identifying that the angle of treatment would be suboptimal. I, therefore, then placed an 11 x 13 short ureteral access sheath over the same guidewire which was removed to allow placement of the flexible ureteroscope right up to the stone. The stone was mildly embedded, but with no ulceration. It was easily manipulated up and treated with a 200 nanometer laser fiber at settings of 8 repetitions per second and a power of 0.6 which fractured the stone methodically into medium-sized pieces that were basket extracted through the sheath without difficulty. The Unit #: [id number] #: [id number] Patient: RICK MONTGOMERY A ureteroscope was then passed up to the kidney proving no abnormalities there in any of the calices and no back migrated fragments. Slow pullback through the treatment area showed no active bleeding, no ulcerations, retained stones, flaps, or evidence of stricture. I thus removed all devices without replacing the stent. A Uro-jet was applied. Stone fragments will be sent for chemical analysis. The patient will be seen in followup in 1 month. Dictated by... Jan Wagoner/isa TD: 04/11/2017 03:08 JOB #: [id number] CC: Sara Negron M.D. OPERATIVE REPORT Page 1 of 1 X Romie Ferreira MD X PROCEDURE OPERATIVE NOTE
== END | disposition home or self-care (01) ==
LOC: CSUR 12:09
PROVIDERS: Urology
DX: N20.1 Calculus of ureter (principal); N40.0 Benign prostatic hyperplasia without lower urinary tract symptoms; E11.9 Type 2 diabetes mellitus without complications; I50.9 Heart failure, unspecified; I48.91 Unspecified atrial fibrillation; E03.9 Hypothyroidism, unspecified; Z95.810 Presence of automatic (implantable) cardiac defibrillator; Z87.442 Personal history of urinary calculi; Z88.0 Allergy status to penicillin; Z79.4 Long term (current) use of insulin; Z79.899 Other long term (current) drug therapy; Z98.890 Other specified postprocedural states
CPT/HCPCS: 82365; 82947; 88300; C1758; J1885; J1956; J2405